=== PATIENT | male | born 1960 | race Caucasian/White ===

== ENCOUNTER 2017-04-10 03:45 | Emergency (ER) | payer OTHER, MEDICAID ==
[2017-04-10] MEDS ORDERED: NS 1,000 ML IV ONE (03:46)
--- NOTE | 2017-04-10 03:51 | EDPHY ---
H & P HPI/ROS: HPI CHIEF COMPLAINT: Seizure activity in longterm, possible narcotic overdose, low oxygen level HISTORY OF PRESENT ILLNESS: This patient 56-year-old male who was incarcerated in longterm, significant past medical history for seizure disorder on Depakote, gabapentin, and hypertension, he presents emergency room by EMS after his longterm roommate witnessed 1 minute of generalized tonic-clonic seizure activity. Detention staff was notified when they evaluated him the patient was noted to have a low oxygen level in the 70%. They had to bag valve mask him up to inappropriate percent. They noticed that he had pinpoint pupils. Per EMS they arrived and evaluated him they gave him intranasal 0.5 mg Narcan, and 1.5 mg IV Narcan which made his pupils go from pinpoint to 4 mm react to light any immediately woke up. He has not spoken to EMS during transport. Upon arrival here in the emergency room is noted to be tachycardic his oxygen saturation 91% on 2 L. He does tell me his name however only answers his name over and over again to any question I ask him. He appears confused. The history review of systems upon arrival to the emergency room is limited due to the patient's clinical mental state Past Medical History: Hypertension, seizures Past Surgical History: Unknown surgical history Social History: Incarcerated, unknown drugs or alcohol Family History: Unknown ROS REVIEW OF SYSTEMS: Limited. Limited due to patient's mental state. Possible drug intoxication. Or postictal state. Exam Constitutional triage nursing summary reviewed, vital signs reviewed, awake/ alert. Eyes normal conjunctivae and sclera, EOMI, PERRLA. 4 mm equal reactive to light. HENT normal inspection, atraumatic, moist mucus membranes, no epistaxis, neck supple/ no meningismus, no raccoon eyes. Respiratory clear to auscultation bilaterally, normal breath sounds, no respiratory distress, no wheezing. Cardiovascular rate normal, regular rhythm, no murmur, no edema, distal pulses normal. Gastrointestinal soft, non-tender, no rebound, no guarding, normal bowel sounds, no distension, no pulsatile mass. Genitourinary no CVA tenderness. Musculoskeletal no midline vertebral tenderness, full range of motion, no calf swelling, no tenderness of extremities, no meningismus, good pulses, neurovascularly intact. Skin pink, warm, & dry, no rash, skin atraumatic. Neurologic confused, alert and orient times 1. Tells me his name over and over again. Psychiatric normal mood/affect. Heme/Lymph/Immune no lymphadenopathy. Differential Diagnosis: Includes but is not limited to in a particular order, generalized tonic-clonic seizure with a postictal state, drug overdose, narcotic overdose, aspiration pneumonia, hypoxia, intracranial bleed Medical Decision Making: Plan for this patient blood work, IV establishment, full manager cardiac, EKG, troponin, CT head without contrast. Watch for resuscitation if this is a narcotic overdose. Watch for seizure. Check Depakote level. Re-evaluated close his mental status improves. Re-evaluation: EKG interpretation by me on record in triptap system. Impression time of EKG 3:50 a.m., sinus tachycardia rate of 110. I do not appreciate acute ischemia. CT scan of the head without IV contrast. The results of the study are negative for acute abnormality. The study was read by Dr. Fong I viewed the images myself on the PACS system. ED x-ray chest one view: Negative for acute cardiopulmonary disease. Specifically no pneumothorax or pneumonia. [id number]: I did re-evaluate the patient at this time is resting comfortably no acute distress. He does tell me he had a seizure this evening. He denies ingesting any drugs. His drug screen was negative. There is no evidence that he had a narcotic overdose. He has not had any recent a silvestre here he was postictal upon arrival. He is now alert and oriented x4, GCS 15, no acute distress. Answers my questions appropriately tells me had a seizure. His Depakote level was slightly low however not requiring any significant change in his medication or Depakote load here. Source: Patient, Police, EMS Constitutional: Initial Vital Signs O2 Sat (%) 95 04/10/17 03:46 O2 Delivery Mode Nasal Cannula O2 (L/minute) 2 Allergies/Adverse Reactions: aspirin Allergy (Verified 04/10/17 03:56) Penicillins Allergy (Verified 04/10/17 03:56) Home Medications: Medication Instructions Recorded Depakote 04/10/17 GABAPENTIN 04/10/17 Losartan/Hydrochlorothiazide 04/10/17 Naproxen 04/10/17 Omeprazole 04/10/17 Tums Ultra 04/10/17 traMADol 04/10/17 Medical Decision Making - Data Points Laboratory Results: Laboratory Results 04/10/17 03:50 04/10/17 03:50 04/10/17 04/10/17 04/10/17 04:48 03:50 03:50 WBC 9.69 10^3/uL H 10^3/uL (3.80-9.50) RBC 4.53 10^6/uL 10^6/uL (4.40-6.38) Hgb 14.3 g/dL g/dL (13.7-17.5) Hct 42.9 % % (40.0-51.0) MCV 94.7 fL fL (81.5-99.8) MCH 31.6 pg pg (27.9-34.1) MCHC 33.3 g/dL g/dL (32.4-36.7) RDW 13.2 % % (11.5-15.2) Plt Count 221 10^3/uL 10^3/uL (150-400) MPV 11.3 fL fL (8.7-11.7) Neut % (Auto) 39.7 % % (39.3-74.2) Lymph % (Auto) 48.4 % H % (15.0-45.0) [place] % (Auto) 9.0 % % (4.5-13.0) Eos % (Auto) 1.9 % % (0.6-7.6) Baso % (Auto) 0.4 % % (0.3-1.7) Nucleat RBC Rel Count 0.0 % % (0.0-0.2) Absolute Neuts (auto) 3.85 10^3/uL 10^3/uL (1.70-6.50) Absolute Lymphs (auto) 4.69 10^3/uL H 10^3/uL (1.00-3.00) Absolute Monos (auto) 0.87 10^3/uL H 10^3/uL (0.30-0.80) Absolute Eos (auto) 0.18 10^3/uL 10^3/uL (0.03-0.40) Absolute Basos (auto) 0.04 10^3/uL 10^3/uL (0.02-0.10) Absolute Nucleated RBC 0.00 10^3/uL 10^3/uL (0-0.01) Immature Gran % 0.6 % % (0.0-1.1) Immature Gran # 0.06 10^3/uL 10^3/uL (0.00-0.10) Sodium 129 mEq/L L mEq/L (134-144) Potassium 4.8 mEq/L mEq/L (3.5-5.2) Chloride 92 mEq/L L mEq/L (97-110) Carbon Dioxide 12 mEq/l L mEq/l (22-31) Anion Gap 25 mEq/L H mEq/L (8-16) BUN 11 mg/dL mg/dL (7-23) Creatinine 1.2 mg/dL mg/dL (0.7-1.3) Estimated GFR > 60 Glucose 112 mg/dL H mg/dL (70-100) Calcium 9.5 mg/dL mg/dL (8.5-10.4) Troponin I < 0.012 ng/mL ng/mL (0-0.034) Urine Opiates Screen NEGATIVE (NEGATIVE) Urine Barbiturates NEGATIVE (NEGATIVE) Valproic Acid 49.3 mcg/mL L mcg/mL (50.0-150.0) Ur Phencyclidine Scrn NEGATIVE (NEGATIVE) Ur Amphetamine Screen NEGATIVE (NEGATIVE) U Benzodiazepines Scrn NEGATIVE (NEGATIVE) Urine Cocaine Screen NEGATIVE (NEGATIVE) U Marijuana (THC) Screen NEGATIVE (NEGATIVE) Medications Given: Discontinued Medications Sodium Chloride (Ns) 1,000 mls @ 0 mls/hr IV ONCE ONE; Wide Open PRN Reason: Protocol Stop: 04/10/17 03:47 Last Admin: 04/10/17 04:02 Dose: 1,000 mls Departure - Departure Disposition: Home, Routine, Self-Care Clinical Impression: Seizure Condition: Good Instructions: Epilepsy (ED) Additional Instructions: 1. Medically cleared to go back to longterm. 2. No evidence of narcotic overdose. Patient had a seizure. Referrals: Patient,NotPresent [Unknown] - As per Instructions
[2017-04-10 04:14] LABS: % IMMATURE GRANULYOCYTES 0.6 % (0.0-1.1); ABSOLUTE IMMATURE GRANULOCYTES 0.06 10^3/uL (0.00-0.10); ADD DIFF? NO; ADD MORPH? NO; ADD SCAN? NO; ATYPICAL LYMPHOCYTE FLAG 20 (0-99); FRAGMENT RBC FLAG 0 (0-99); HEMATOCRIT 42.9 % (40.0-51.0); HEMOGLOBIN 14.3 g/dL (13.7-17.5); LEFT SHIFT FLG 0 (0-99); LIPEMIA HEMOLYSIS FLAG 80 (0-99); MEAN CELL HEMOGLOBIN 31.6 pg (27.9-34.1); MEAN CELL HEMOGLOBIN CONCENTR. 33.3 g/dL (32.4-36.7); MEAN CELL VOLUME 94.7 fL (81.5-99.8); MEAN PLATELET VOLUME 11.3 fL (8.7-11.7); PLATELET CLUMPS FLAG 0 (0-99); PLATELET COUNT 221 10^3/uL (150-400); RED BLOOD CELL COUNT 4.53 10^6/uL (4.40-6.38); RED CELL DISTRIBUTION WIDTH 13.2 % (11.5-15.2)
[2017-04-10 04:21] LABS: POTASSIUM 4.8 mEq/L (3.5-5.2)
[2017-04-10 04:22] VITALS: RESP 16
[2017-04-10 04:22] LABS: ANION GAP 25 mEq/L (8-16); CALCIUM 9.5 mg/dL (8.5-10.4); CARBON DIOXIDE 12 mEq/l (22-31); CHLORIDE 92 mEq/L (97-110); CREATININE 1.2 mg/dL (0.7-1.3); GLOMERULAR FILTRATION RATE > 60; GLUCOSE 112 mg/dL (70-100); SODIUM 129 mEq/L (134-144)
[2017-04-10 04:35] LABS: TROPONIN I < 0.012 ng/mL (0-0.034)
--- NOTE | 2017-04-10 04:45 | CPEKG ---
Heart Rate: 110 RR Interval: 545 P-R Interval: 176 QRSD Interval: 82 QT Interval: 336 QTC Interval: 455 P [place]: 50 QRS [place]: 55 T Wave [place]: 41 EKG Severity - OTHERWISE NORMAL ECG - EKG Impression: SINUS TACHYCARDIA Electronically Signed By: Karlo Burden 10-Apr-2017 06:44:44
[2017-04-10 06:23] VITALS: BP 132/73; PULSE 67; TEMP 97.9; O2SAT 96
== END 2017-04-10 06:22 | disposition home or self-care (01) ==
LOC: EDUNIT#
DX: G40.909 Epilepsy, unspecified, not intractable, without status epilepticus (principal); I10 Essential (primary) hypertension
CPT/HCPCS: 80305

== ENCOUNTER → 2018-01-03 | Outpatient (CLI) | payer MEDICAID ==
--- NOTE | 2018-01-04 10:39 | CPEEG ---
[f rep st] ELECTROENCEPHALOGRAM DATE OF STUDY: DATE OF INTERPRETATION: 01/04/2018 DATE OF STUDY: 01/03/2018. INTERPRETATION: This 4-hour video EEG recording contains sharply contoured wave forms of uncertain clinical significance over the left temporal head region. A repeat EEG may be useful to clarify the nature of these findings, if clinically indicated. There were no definite abnormal epileptogenic abnormalities present in the awake or sleep recordings. The patient did not have any clinical events during the video EEG monitoring session. REPORT: This 4-hour video EEG contains 10 Hz alpha activity to the posterior head regions. There was no abnormal activation with photic stimulation or hyperventilation. There were sharply contoured waveforms of uncertain clinical significance during wakefulness, drowsiness, and sleep. These waveforms did not evolve into definite spikes or sharp waves. A repeat study could be helpful to clarify the nature of these findings, if clinically indicated. The patient did not have any clinical events during the video EEG monitoring session. /[id number]/MODL MTDD
== END ==
LOC: FCPNEURO 11:55
PROVIDERS: ATTEND Psychiatry & Neurology Neurology
DX: R56.9 Unspecified convulsions (principal)